=== PATIENT | male | born 1925 | race Caucasian/White ===

== ENCOUNTER 2017-02-28 16:38 | Inpatient (IN) | payer MEDICARE, MEDICAID ==
[~2017-02-28] VITALS: Ht 172.7 cm; Wt 68.9 kg
[2017-02-28] MEDS ORDERED: SIMV10TA6 PO (17:00)
[2017-02-28] MEDS ORDERED: ASPI81TA31 PO (17:00)
[2017-02-28] MEDS ORDERED: POLY17PO4 PO (17:00)
[2017-02-28] MEDS ORDERED: NAPR500T3 PO (17:00)
[2017-02-28] MEDS ORDERED: DONE5TAB7 PO (17:00)
[2017-02-28] MEDS ORDERED: NIAC500T2 PO (17:00)
[2017-02-28] MEDS ORDERED: MEMA10TA PO (17:00)
[2017-02-28] MEDS ORDERED: VIT1CAPS6 PO (17:00)
[2017-02-28] MEDS ORDERED: FLUO10CA26 PO (17:00)
[2017-02-28] MEDS ORDERED: ACET-2605 PO (17:00)
[2017-02-28] MEDS ORDERED: TRAM50TA2 PO (17:01)
[2017-02-28 17:32] LABS: BASOPHILS % (AUTO) 0.4 % (0.0-2.0); EOSINOPHILS # (AUTO) 0.2 K/uL (0.0-0.7); EOSINOPHILS % (AUTO) 3.7 % (0.0-7.0); LYMPHOCYTES # (AUTO) 0.6 K/UL (0.8-4.8); LYMPHOCYTES % (AUTO) 12.2 % (20.5-51.5); MEAN CORPUSCULAR HEMOGLOBIN 20.5 UUG (27.0-31.0); MEAN CORPUSCULAR HGB CONC 29 g/dL (32.0-37.0); MEAN CORPUSCULAR VOLUME 69.7 FL (82.0-92.0); MONOCYTES # (AUTO) 0.4 K/UL (0.1-1.30); MONOCYTES % (AUTO) 7.9 % (0.0-11.0); NEUTROPHILS # (AUTO) 3.4 K/UL (1.8-8.9); NEUTROPHILS % (AUTO) 75.8 % (38.5-71.5); PLATELET COUNT (AUTO) 280 K/UL (150-450); RED BLOOD CELL COUNT(AUTO) 2.61 MIL/UL (4.7-6.1); WHITE BLOOD COUNT (AUTO) 4.6 K/UL (4.0-11.2)
[2017-02-28 17:33] LABS: CARBON DIOXIDE 28 mmol/L (21-32); CHLORIDE 103 mmol/L (98-107); CREATININE 0.9 mg/dL (0.6-1.3); GLUCOSE 128 mg/dL (74-106); POTASSIUM 4.5 mmol/L (3.5-5.1); UREA NITROGEN, BLOOD 23 mg/dL (7-18)
[2017-02-28 17:44] LABS: HEMATOCRIT 18.2 % (40-50); HEMOGLOBIN 5.4 G/DL (14.0-18.0)
[2017-02-28 17:45] LABS: ALANINE AMINOTRANSFERASE 9 U/L (16-63); ALKALINE PHOSPHATASE 812 U/L (50-136); ASPARTATE AMINOTRANSFERASE 71 U/L (15-37); BILIRUBIN,DIRECT 0.1 mg/dL (0.0-0.2); BILIRUBIN,TOTAL 0.3 mg/dL (0.2-1.0)
[2017-02-28 17:59] LABS: *BILIRUBIN,URIN NEGATIVE (NEGATIVE); *BLOOD, URINE NEGATIVE (NEGATIVE); *CLARITY,URINE CLEAR (CLEAR); *COLOR,URINE YELLOW (YELLOW); *KETONES,URINE NEGATIVE (NEGATIVE); *PROTEIN,URINE 1+ (NEGATIVE); LEUKOCYTE ESTERASE ,URINE NEGATIVE (NEGATIVE); NITRITE, URINE NEGATIVE (NEGATIVE); UGLUCOSE NEGATIVE (NEGATIVE)
[2017-02-28 18:29] LABS: BACTERIA,URINE FEW /HPF (NONE SEEN); RBC,URINE 0-3 /HPF (0-3); SQUAMOUS EPITHELIAL CELL,UR FEW /HPF (NONE SEEN); WBC,URINE 0-3 /HPF (0-3)
[2017-02-28 18:39] LABS: BAND % (MANUAL) 6 % (0-10); EOSINOPHILS % (MANUAL) 3 % (0-8); LYMPHOCYTES % (MANUAL) 9 % (20-40); METAMYELOCYTES % 1 % (0-1); MONOCYTES % (MANUAL) 6 % (2-10); NEUTROPHILS % (MANUAL) 75 % (42-75)
--- NOTE | 2017-02-28 18:52 | NUR ---
PT IS IN ROOM #2B. DR LAWLER EVALUATED THE PT. PT'S DOUGHTER AT THE BEDSIDE. PT IS RESTING IN THE BED COMFORTABLY.
[2017-02-28] MEDS ORDERED: MORPHINE SULFATE 4 MG/1 ML DISP.SYRIN IV ONE (19:30)
[2017-02-28] MEDS ORDERED: ONDANSETRON IV *ER 4 MG/2 ML VIAL IV ONE (19:30)
[2017-02-28] MEDS ORDERED: MORPHINE SULFATE 4 MG/1 ML DISP.SYRIN ONE (19:53)
[2017-02-28] MEDS ORDERED: ONDANSETRON 4 MG/2 ML VIAL ONE (19:54)
--- NOTE | 2017-02-28 19:58 | NUR ---
Second IV established, pt medicated for discomfort, will monitor for effects of medication. Blood transfusion started. Will monitor for any adverse reactions. Pt resting in position of comfort for self. Preparing to transfer pt to the floor
--- NOTE | 2017-02-28 21:00 | NUR ---
Report called to floor. Blood transfusion cont, no adverse reactions noted. Preparing to transfer pt to the floor.
--- NOTE | 2017-02-28 21:00 | NUR ---
PT RECEIVED FROM ED VIA GURNEY. DAUGHTER AT BEDSIDE. A/OX2. ORIENTED TO ROOM. V/S STABLE. NO ACUTE DISTRESS NOTED. NO COMPLAINTS OF PAIN AT THIS TIME. IV BLOOD TRANSFUSION ENDED. 108 [place] [place] WITH PAC'S ON THE TELE MONITOR. FALL PRECAUTIONS IN PLACE. SAFETY MEASURE IMPLEMENTED. CALL LIGHT WITHIN REACH. WILL CONT TO MONITOR.
[2017-02-28 21:20] VITALS: BP 103/58
[2017-02-28 22:35] VITALS: BP 103/57
[2017-02-28 22:51] VITALS: BP 103/55
[2017-02-28] MEDS ORDERED: TEMAZEPAM 15 MG CAPSULE PO PRN (23:00)
[2017-02-28] MEDS ORDERED: ACETAMINOPHEN ES 500 MG TABLET PO PRN (23:00)
[2017-02-28 23:05] VITALS: BP 107/60
[2017-02-28] MEDS ORDERED: ACETAMINOPHEN ES 500 MG TABLET ONE (23:05)
[2017-02-28] MEDS ORDERED: TEMAZEPAM 15 MG CAPSULE ONE (23:05)
[2017-02-28 23:56] VITALS: BP 103/57
[2017-03-01 00:05] VITALS: BP_SYST 108; BP_SYST 113; BP_DIAS 63
[2017-03-01 01:01] VITALS: BP_SYST 95; BP_SYST 96; BP_DIAS 49; BP_DIAS 57
--- NOTE | 2017-03-01 01:05 | NUR ---
1 UNIT OF PRBC ADMINISTERED ORDERED. PT IN STABLE CONDITION. WILL CONT TO MONITOR.
[2017-03-01 04:00] VITALS: BP 103/60
--- NOTE | 2017-03-01 05:46 | NUR ---
END OF SHIFT NOTES. PT SLEPT INTERMITTENTLY THROUGHOUT SHIFT. NEEDS ATTENDED. V/S STABLE. NO ACUTE DISTRESS NOTED. NO COMPLAINTS OF PAIN THROUGHOUT SHIFT. PT IV TKO. SAFETY MAINTAINED. BED ALARM SET. CALL LIGHT WITHIN REACH.
[2017-03-01 06:51] LABS: CARBON DIOXIDE 27 mmol/L (21-32); CHLORIDE 104 mmol/L (98-107); CREATININE 0.9 mg/dL (0.6-1.3); GLUCOSE 93 mg/dL (74-106); POTASSIUM 4.4 mmol/L (3.5-5.1); UREA NITROGEN, BLOOD 21 mg/dL (7-18)
[2017-03-01 06:53] LABS: BASOPHILS % (AUTO) 0.6 % (0.0-2.0); EOSINOPHILS # (AUTO) 0.3 K/uL (0.0-0.7); EOSINOPHILS % (AUTO) 5.2 % (0.0-7.0); HEMOGLOBIN 7.3 G/DL (14.0-18.0); LYMPHOCYTES # (AUTO) 0.8 K/UL (0.8-4.8); LYMPHOCYTES % (AUTO) 12.4 % (20.5-51.5); MEAN CORPUSCULAR HEMOGLOBIN 23.2 UUG (27.0-31.0); MEAN CORPUSCULAR HGB CONC 31 g/dL (32.0-37.0); MEAN CORPUSCULAR VOLUME 74.5 FL (82.0-92.0); MONOCYTES # (AUTO) 0.5 K/UL (0.1-1.30); MONOCYTES % (AUTO) 8.4 % (0.0-11.0); NEUTROPHILS # (AUTO) 4.9 K/UL (1.8-8.9); NEUTROPHILS % (AUTO) 73.4 % (38.5-71.5); PLATELET COUNT (AUTO) 270 K/UL (150-450); RED BLOOD CELL COUNT(AUTO) 3.16 MIL/UL (4.7-6.1); WHITE BLOOD COUNT (AUTO) 6.5 K/UL (4.0-11.2)
[2017-03-01 07:03] LABS: HEMATOCRIT 23.5 % (40-50)
--- NOTE | 2017-03-01 07:30 | NUR ---
DR LR WAS INFORM OF HB/HCT LAB RESULT TODAY NO NEW ORDER
[2017-03-01 07:59] LABS: EOSINOPHILS % (MANUAL) 5 % (0-8); LYMPHOCYTES % (MANUAL) 13 % (20-40); MONOCYTES % (MANUAL) 6 % (2-10); NEUTROPHILS % (MANUAL) 76 % (42-75)
--- NOTE | 2017-03-01 08:00 | NUR ---
RESTING IN BED NO SOB OR PAIN ON ASPIRATION /FA,LL PRECAUTION CALL RAINEY IN REACH AND BED ALARM ON
--- NOTE | 2017-03-01 10:00 | NUR ---
ASSIST UP IN CHAIR EAT BREAKFAST WELL PO FLD JAYNE MOD AMT
[2017-03-01] MEDS ORDERED: NAPROXEN 500 MG TABLET PO PRN (10:30)
[2017-03-01] MEDS ORDERED: MIRALAX 17 GM POWD.PACK PO PRN (10:30)
[2017-03-01] MEDS: MEMANTINE HCL 10 MG TABLET PO SCH ×2 (10:35→17:20)
[2017-03-01] MEDS: BETA CAROTENE/VIT C & E/MIN TABLET PO SCH ×2 (10:35→17:20)
[2017-03-01] MEDS: DONEPEZIL 5 MG TABLET PO SCH (10:35)
[2017-03-01] MEDS: FLUOXETINE HCL 10 MG CAPSULE PO SCH (10:35)
[2017-03-01] MEDS: ASPIRIN 81 MG TAB.CHEW PO SCH (10:35)
[2017-03-01] MEDS: TRAMADOL HCL 50 MG TABLET PO PRN ×2 (10:35→20:14)
[2017-03-01 12:00] VITALS: BP 99/49
[2017-03-01] MEDS ORDERED: ACETAMINOPHEN ES 500 MG TABLET PO SCH (13:00)
[2017-03-01 14:28] LABS: *OCCULT BLOOD STOOL POSITIVE (NEGATIVE)
[2017-03-01 16:00] VITALS: BP 106/58
--- NOTE | 2017-03-01 16:00 | NUR ---
MOST OF THE TIME HE RESTING WELL FAMILY DAUGHTER AT BEDSIDE
--- NOTE | 2017-03-01 18:00 | NUR ---
STABLE HEMODYNAMIC SAFETY MEASURE PROVIDED BED ALARM ON AND SITTER 1:1 AT BEDSIDE CALL LIGHT WITHIN REACH
[2017-03-01 19:00] VITALS: BP 98/50
[2017-03-01] MEDS: NIACIN 500 MG TABLET PO SCH (20:13)
[2017-03-01] MEDS: SIMVASTATIN 10 MG TABLET PO SCH (20:14)
--- NOTE | 2017-03-01 20:15 | NUR ---
patient had moderate amount of soft stool, no active bleeding noted,SR with PAC's on monitor,Ultram 50 mg po admin for generalized and low back pain,patient seen by . for psych consult.
[2017-03-02] VITALS: BP 99/58
--- NOTE | 2017-03-02 01:29 | NUR ---
patient has been sleeping ,bed alarm on,1:1 sitter at bedside for safety.
[2017-03-02 04:00] VITALS: BP 100/57
[2017-03-02 07:24] LABS: BASOPHILS % (AUTO) 0.1 % (0.0-2.0); EOSINOPHILS # (AUTO) 0.4 K/uL (0.0-0.7); EOSINOPHILS % (AUTO) 5.4 % (0.0-7.0); LYMPHOCYTES # (AUTO) 0.8 K/UL (0.8-4.8); LYMPHOCYTES % (AUTO) 12.5 % (20.5-51.5); MEAN CORPUSCULAR HEMOGLOBIN 23.9 UUG (27.0-31.0); MEAN CORPUSCULAR HGB CONC 32 g/dL (32.0-37.0); MEAN CORPUSCULAR VOLUME 75.7 FL (82.0-92.0); MONOCYTES # (AUTO) 0.6 K/UL (0.1-1.30); MONOCYTES % (AUTO) 8.3 % (0.0-11.0); NEUTROPHILS # (AUTO) 4.9 K/UL (1.8-8.9); NEUTROPHILS % (AUTO) 73.7 % (38.5-71.5); PLATELET COUNT (AUTO) 268 K/UL (150-450); RED BLOOD CELL COUNT(AUTO) 3.05 MIL/UL (4.7-6.1); WHITE BLOOD COUNT (AUTO) 6.7 K/UL (4.0-11.2)
[2017-03-02 07:37] LABS: HEMOGLOBIN 7.3 G/DL (14.0-18.0)
[2017-03-02 07:38] LABS: HEMATOCRIT 23.1 % (40-50)
[2017-03-02 07:52] LABS: CARBON DIOXIDE 26 mmol/L (21-32); CHLORIDE 104 mmol/L (98-107); CREATININE 1.1 mg/dL (0.6-1.3); GLUCOSE 86 mg/dL (74-106); POTASSIUM 4.2 mmol/L (3.5-5.1); UREA NITROGEN, BLOOD 24 mg/dL (7-18)
[2017-03-02] MEDS: DONEPEZIL 5 MG TABLET PO SCH (08:00)
[2017-03-02] MEDS: BETA CAROTENE/VIT C & E/MIN TABLET PO SCH ×2 (08:00→17:13)
[2017-03-02] MEDS: ASPIRIN 81 MG TAB.CHEW PO SCH (08:00)
[2017-03-02] MEDS: FLUOXETINE HCL 10 MG CAPSULE PO SCH (08:00)
[2017-03-02] MEDS: MEMANTINE HCL 10 MG TABLET PO SCH ×2 (08:00→17:13)
[2017-03-02 08:19] VITALS: BP 94/46
--- NOTE | 2017-03-02 08:30 | NUR ---
AWAKE COOPERATE WELL NO SOB OR PAIN ON FALL AND ASPIRATION PRECAUTION CALL RAINEY IN REACH SITTER 1:1 AT BEDSIDE AND BED ALARM ON
[2017-03-02 11:25] VITALS: BP 99/59
--- NOTE | 2017-03-02 13:00 | NUR ---
DR LR SEE PATIENT AND LAB RESULT AND DISCUSS WITH FAMILY DAUGHTER THIS AFTERNOON
[2017-03-02 15:18] VITALS: BP 106/54
--- NOTE | 2017-03-02 16:00 | NUR ---
DR JEFFRIES HERE SEE PATIENT AND NEW ORDER SCHEDULE FOR EGD AND COLONOSCOPY TOMORROW
[2017-03-02] MEDS ORDERED: GOLYTELY 4000 ML BOTTLE PO ONE (16:45)
--- NOTE | 2017-03-02 17:30 | NUR ---
SAME CONDITION ,PAIN UNDER CONTROL NO BLEEDING NO ACUTE DISTRESS SAFETY MEASURE PROVIDED CALL RAINEY IN REACH AND BED ALARM ON START GOLYTELY THIS EVENING JAYNE WELL SCHEDULE EGD AND COLONOSCOPY IN AM
[2017-03-02 19:00] VITALS: BP 104/60
--- NOTE | 2017-03-02 19:45 | NUR ---
PT RECEIVED LAYING IN BED, NO ACUTE DISTRESS NOTED. PT IS AOX2/3, SOMEWHAT IRRITABLE UPON APPROACH. HEP LOCK NOTED TO RIGHT ARM AND RIGHT HAND, BOTH INTACT AND PATENT. PT CURRENTLY DRINKING GO LIGHTLY DRINK FOR SCHEDULED COLONOSCOPY IN AM. 1:1 SITTER AT BEDSIDE.
[2017-03-02] MEDS: NIACIN 500 MG TABLET PO SCH (20:25)
[2017-03-02] MEDS: SIMVASTATIN 10 MG TABLET PO SCH (20:26)
--- NOTE | 2017-03-02 23:00 | NUR ---
PT AWAKE INTERMITTENTLY TONIGHT. PT DRINKS GO LIGHTLY BUT REFUSES AFTER 1 CUP GIVEN DESPITE EDUCATION. WILL CONTINUE TO ENCOURAGE PT TO DRINK GO LIGHTLY. NO ACUTE DISTRESS NOTED. SAFETY MEASURES MAINTAINED.
--- NOTE | 2017-03-03 02:28 | NUR ---
PT AWAKE USING RESTROOM, PT SOMEWHAT AGITATED, REFUSING TO DRINKING GO LIGHTLY DRINK DESPITE EDUCATION, STATES "LET ME SLEEP WILL YOU". WILL CONTINUE TO ENCOURAGEMENT TO DRINK. 1:1 SITTER AT BEDSIDE.
[2017-03-03 04:00] VITALS: BP 115/69
--- NOTE | 2017-03-03 06:35 | NUR ---
PT HAD X5 BOWEL MOVEMENT THROUGH OUT THE NIGHT, PER SITTER LAST BM IS LOOSE STOOL BUT STILL SOMEWHAT BROWN AND NOT YET CLEAR. PT REFUSED TO DRINK THE REST OF GO LIGHTLY DESPITE EDUCATION, WILL ENDORSE TO STAFF AND MD. SAFETY MEASURES MAINTAINED.
--- NOTE | 2017-03-03 07:10 | NUR ---
LEFT MESSAGE WITH DR JEFFRIES OFFICE VOICEMAIL REGARDING PT REFUSING TO COMPLETE INTAKE OF GO LIGHTLY. AWAITING CALL BACK. REPORT GIVEN TO ROHIT.
[2017-03-03 07:19] LABS: EOSINOPHILS # (AUTO) 0.3 K/uL (0.0-0.7); EOSINOPHILS % (AUTO) 3.6 % (0.0-7.0); LYMPHOCYTES # (AUTO) 0.9 K/UL (0.8-4.8); LYMPHOCYTES % (AUTO) 12.3 % (20.5-51.5); MEAN CORPUSCULAR HEMOGLOBIN 23.9 UUG (27.0-31.0); MEAN CORPUSCULAR HGB CONC 32 g/dL (32.0-37.0); MEAN CORPUSCULAR VOLUME 74.8 FL (82.0-92.0); MONOCYTES # (AUTO) 0.5 K/UL (0.1-1.30); MONOCYTES % (AUTO) 6.7 % (0.0-11.0); NEUTROPHILS # (AUTO) 5.9 K/UL (1.8-8.9); NEUTROPHILS % (AUTO) 77.4 % (38.5-71.5); PLATELET COUNT (AUTO) 271 K/UL (150-450); WHITE BLOOD COUNT (AUTO) 7.6 K/UL (4.0-11.2)
[2017-03-03 07:29] LABS: HEMATOCRIT 22.6 % (40-50); HEMOGLOBIN 7.2 G/DL (14.0-18.0)
[2017-03-03 07:30] LABS: RED BLOOD CELL COUNT(AUTO) 3.03 MIL/UL (4.7-6.1)
[2017-03-03] MEDS ORDERED: FLEET ENEMA 133 ML BOTTLE RC ONE (07:30)
[2017-03-03] MEDS ORDERED: MAGNESIUM CITRATE 296 ML BOTTLE PO ONE (07:30)
[2017-03-03] MEDS ORDERED: IRR STERIL WATER FOR IRR 1000 ML BOTTLE IR ONE (07:33)
[2017-03-03] MEDS ORDERED: PROPOFOL 200 MG/20 ML BOTTLE IV ONE (07:33)
[2017-03-03] MEDS ORDERED: IV NORMAL SALINE 1000 ML BAG IV ONE (07:33)
--- NOTE | 2017-03-03 07:50 | NUR ---
MAG CITRATE GIVEN ORDER JAYNE WELL NO N/V OTHERWISE HE WAS NPO EXCEPT MEDICINE NO SOB OR PAIN RESTING WELL WITH CALL LIGHT IN REACH ,BED ALARM ON SITTER 1:1 FOR SAFETY
[2017-03-03] MEDS: DONEPEZIL 5 MG TABLET PO SCH (07:51)
[2017-03-03] MEDS: FLUOXETINE HCL 10 MG CAPSULE PO SCH (07:51)
[2017-03-03] MEDS: MEMANTINE HCL 10 MG TABLET PO SCH ×2 (07:51→16:53)
[2017-03-03 08:01] LABS: ALANINE AMINOTRANSFERASE 11 U/L (16-63); ALKALINE PHOSPHATASE 665 U/L (50-136); ASPARTATE AMINOTRANSFERASE 41 U/L (15-37); BILIRUBIN,TOTAL 0.5 mg/dL (0.2-1.0); CARBON DIOXIDE 25 mmol/L (21-32); CHLORIDE 103 mmol/L (98-107); GLUCOSE 104 mg/dL (74-106); MAGNESIUM 2.2 mg/dL (1.8-2.4); PHOSPHOROUS 3.3 mg/dL (2.5-4.9); POTASSIUM 3.9 mmol/L (3.5-5.1); TOTAL PROTEIN, SERUM 6.5 g/dL (6.4-8.2); UREA NITROGEN, BLOOD 19 mg/dL (7-18)
--- NOTE | 2017-03-03 08:10 | NUR ---
FLEET ENEMA X1 GIVEN TODAY JAYNE PROCEDURE WELL
[2017-03-03 08:45] LABS: BASOPHILS % (MANUAL) 1 % (0-2); EOSINOPHILS % (MANUAL) 8 % (0-8); LYMPHOCYTES % (MANUAL) 14 % (20-40); METAMYELOCYTES % 1 % (0-1); MONOCYTES % (MANUAL) 5 % (2-10); MYELOCYTES % 2 % (0-0); NEUTROPHILS % (MANUAL) 69 % (42-75)
[2017-03-03] MEDS: ASPIRIN 81 MG TAB.CHEW PO SCH (09:00)
[2017-03-03] MEDS: BETA CAROTENE/VIT C & E/MIN TABLET PO SCH ×2 (09:00→16:53)
--- NOTE | 2017-03-03 09:30 | NUR ---
PATIENT HAVING BM X2 LIQ LOOSE BM WITH SMALL PARTICLE YELLOW SCHEDULE FOR EGD AND COLONOSCOPY TODAY CONSENT SIGNS BY PT DAUGHTER
--- NOTE | 2017-03-03 10:00 | NUR ---
PATIENT PULL IV HL OUT RESTART A NEW ONE ON LEFT HAND #22
[2017-03-03 11:19] VITALS: BP 111/64
--- NOTE | 2017-03-03 12:30 | NUR ---
TO GI LAB VIA BED CONDITION STABLE NO PAIN FAMILY AT BEDSIDE
--- NOTE | 2017-03-03 14:00 | NUR ---
BACK TO ROOM VS TAKEN STABLE NO PAIN OR GI BLEEDING CALL RAINEY IN REACH AND CLOSED OBSERVATION
--- NOTE | 2017-03-03 14:45 | NUR ---
DR LR SEEN PATIENT AND DISCUSS WITH DAUGHTER IN ROOM
[2017-03-03 14:59] VITALS: BP 116/63
--- NOTE | 2017-03-03 17:30 | NUR ---
STABLE CONDITION NO ACUTE DISTRESS NO BLEEDING OR SOB PAIN UNDER CONTROL SAFETY MEASURE PROVIDED BED ALARM ON AND SITTER 1:1 AT BEDSIDE
[2017-03-03 20:00] VITALS: BP 105/58
--- NOTE | 2017-03-03 20:00 | NUR ---
PT RECEIVED SITTING UP IN ANUPAM CHAIR IN ROOM, AOX2. SOMEWHAT CONFUSED AT TIMES. HEP LOCK IN LEFT HAND, INTACT AND PATENT. NO ACUTE DISTRESS NOTED. BED IN LOW AND LOCKED POSITION, 1:1 SITTER AT BEDSIDE.
[2017-03-03] MEDS: SIMVASTATIN 10 MG TABLET PO SCH (20:14)
[2017-03-03] MEDS: NIACIN 500 MG TABLET PO SCH (20:14)
[2017-03-04] VITALS (12 sets, daily range): BP systolic 101–117; BP diastolic 53–67
--- NOTE | 2017-03-04 00:05 | NUR ---
BLOOD TRANSFUSION COMPLETE. NO REACTION NOTED. VSS. BED ALARM ON. ALL NEEDS ATTENDED. WILL CONTINUE TO MONITOR.
[2017-03-04 07:15] LABS: ALANINE AMINOTRANSFERASE 11 U/L (16-63); ALKALINE PHOSPHATASE 617 U/L (50-136); ASPARTATE AMINOTRANSFERASE 45 U/L (15-37); BILIRUBIN,TOTAL 0.5 mg/dL (0.2-1.0); CARBON DIOXIDE 24 mmol/L (21-32); CHLORIDE 103 mmol/L (98-107); CREATININE 0.8 mg/dL (0.6-1.3); GLUCOSE 97 mg/dL (74-106); MAGNESIUM 2.3 mg/dL (1.8-2.4); PHOSPHOROUS 3.3 mg/dL (2.5-4.9); POTASSIUM 3.8 mmol/L (3.5-5.1); TOTAL PROTEIN, SERUM 6.1 g/dL (6.4-8.2); UREA NITROGEN, BLOOD 15 mg/dL (7-18)
[2017-03-04 07:31] LABS: EOSINOPHILS # (AUTO) 0.1 K/uL (0.0-0.7); EOSINOPHILS % (AUTO) 1.9 % (0.0-7.0); LYMPHOCYTES # (AUTO) 0.6 K/UL (0.8-4.8); LYMPHOCYTES % (AUTO) 11.9 % (20.5-51.5); MEAN CORPUSCULAR HEMOGLOBIN 23.5 UUG (27.0-31.0); MEAN CORPUSCULAR HGB CONC 31 g/dL (32.0-37.0); MEAN CORPUSCULAR VOLUME 74.9 FL (82.0-92.0); MONOCYTES # (AUTO) 0.3 K/UL (0.1-1.30); MONOCYTES % (AUTO) 7.4 % (0.0-11.0); NEUTROPHILS # (AUTO) 3.6 K/UL (1.8-8.9); NEUTROPHILS % (AUTO) 78.8 % (38.5-71.5); PLATELET COUNT (AUTO) 209 K/UL (150-450); RED BLOOD CELL COUNT(AUTO) 2.86 MIL/UL (4.7-6.1)
[2017-03-04 07:43] LABS: WHITE BLOOD COUNT (AUTO) 4.6 K/UL (4.0-11.2)
[2017-03-04 07:44] LABS: HEMOGLOBIN 6.7 G/DL (14.0-18.0)
[2017-03-04 07:45] LABS: HEMATOCRIT 21.4 % (40-50)
[2017-03-04 08:49] LABS: BAND % (MANUAL) 3 % (0-10); BASOPHILS % (MANUAL) 1 % (0-2); EOSINOPHILS % (MANUAL) 4 % (0-8); LYMPHOCYTES % (MANUAL) 12 % (20-40); METAMYELOCYTES % 1 % (0-1); MONOCYTES % (MANUAL) 7 % (2-10); NEUTROPHILS % (MANUAL) 72 % (42-75)
[2017-03-04] MEDS: MEMANTINE HCL 10 MG TABLET PO SCH ×2 (09:37→18:48)
[2017-03-04] MEDS: FLUOXETINE HCL 10 MG CAPSULE PO SCH (09:37)
[2017-03-04] MEDS: ASPIRIN 81 MG TAB.CHEW PO SCH (09:37)
[2017-03-04] MEDS: DONEPEZIL 5 MG TABLET PO SCH (09:37)
[2017-03-04] MEDS: BETA CAROTENE/VIT C & E/MIN TABLET PO SCH ×2 (09:37→18:48)
--- NOTE | 2017-03-04 19:05 | NUR ---
One unit PRBCs transfused. One unit left to transfuse. Patient Hgb 6.2. Patient could potentially be discharged tomorrow depending on lab work.
--- NOTE | 2017-03-04 20:00 | NUR ---
RECEIVED PATIENT ASLEEP IN BED. EASILY AROUSABLE. ALERT TO SELF. CONFUSED AND FORGETFUL AT TIMES. NEEDS REDIRECTION. VSS. DENIES PAIN WHEN ASKED. NO RESP. DISTRESS NOTED. H/L INTACT AND PATENT. SITTER AT BEDSIDE FOR SAFETY. BED ALARM ON. CALL LIGHT IN REACH. WILL CONTINUE TO MONITOR.
--- NOTE | 2017-03-04 20:15 | NUR ---
PATIENT HAS AN OLD SKIN TEAR NOTED TO LEFT ELBOW WITH STERI-STRIPS IN PLACE. WILL CONTINUE TO MONITOR.
--- NOTE | 2017-03-04 20:45 | NUR ---
2ND UNIT OF BLOOD STARTED ORDERED. VSS. WILL CONTINUE TO MONITOR.
--- NOTE | 2017-03-04 21:00 | NUR ---
NO TRANSFUSION REACTION NOTED. VSS. WILL CONTINUE TO MONITOR.
[2017-03-04] MEDS: NIACIN 500 MG TABLET PO SCH (21:15)
[2017-03-04] MEDS: SIMVASTATIN 10 MG TABLET PO SCH (21:16)
[2017-03-05 00:04] VITALS: BP 106/62
[2017-03-05 05:19] VITALS: BP 125/68
[2017-03-05 06:52] LABS: BASOPHILS % (AUTO) 0.5 % (0.0-2.0); EOSINOPHILS # (AUTO) 0.2 K/uL (0.0-0.7); EOSINOPHILS % (AUTO) 3.8 % (0.0-7.0); HEMATOCRIT 26.4 % (40-50); HEMOGLOBIN 8.6 G/DL (14.0-18.0); LYMPHOCYTES # (AUTO) 0.9 K/UL (0.8-4.8); LYMPHOCYTES % (AUTO) 15.7 % (20.5-51.5); MEAN CORPUSCULAR HEMOGLOBIN 25.2 UUG (27.0-31.0); MEAN CORPUSCULAR HGB CONC 33 g/dL (32.0-37.0); MEAN CORPUSCULAR VOLUME 76.9 FL (82.0-92.0); MONOCYTES # (AUTO) 0.6 K/UL (0.1-1.30); MONOCYTES % (AUTO) 10.2 % (0.0-11.0); NEUTROPHILS % (AUTO) 69.8 % (38.5-71.5); PLATELET COUNT (AUTO) 198 K/UL (150-450); RED BLOOD CELL COUNT(AUTO) 3.43 MIL/UL (4.7-6.1); WHITE BLOOD COUNT (AUTO) 5.7 K/UL (4.0-11.2)
--- NOTE | 2017-03-05 07:15 | NUR ---
rec'd bedside sbar report. pt resting/eyes closed, no distress noted.
[2017-03-05 07:25] LABS: ALANINE AMINOTRANSFERASE 13 U/L (16-63); ALKALINE PHOSPHATASE 604 U/L (50-136); ASPARTATE AMINOTRANSFERASE 40 U/L (15-37); BILIRUBIN,TOTAL 0.7 mg/dL (0.2-1.0); CARBON DIOXIDE 25 mmol/L (21-32); CHLORIDE 106 mmol/L (98-107); GLUCOSE 98 mg/dL (74-106); MAGNESIUM 2.3 mg/dL (1.8-2.4); PHOSPHOROUS 3.2 mg/dL (2.5-4.9); POTASSIUM 3.7 mmol/L (3.5-5.1); UREA NITROGEN, BLOOD 14 mg/dL (7-18)
[2017-03-05 08:15] VITALS: BP 119/62
[2017-03-05] MEDS: BETA CAROTENE/VIT C & E/MIN TABLET PO SCH (09:23)
[2017-03-05] MEDS: MEMANTINE HCL 10 MG TABLET PO SCH (09:24)
[2017-03-05] MEDS: ASPIRIN 81 MG TAB.CHEW PO SCH (09:24)
[2017-03-05] MEDS: FLUOXETINE HCL 10 MG CAPSULE PO SCH (09:24)
[2017-03-05] MEDS: DONEPEZIL 5 MG TABLET PO SCH (09:24)
[2017-03-05] MEDS: TRAMADOL HCL 50 MG TABLET PO PRN (09:24)
[2017-03-05] MEDS ORDERED: TEMA15CA5 PO (13:21)
[2017-03-05 15:01] VITALS: BP 108/59
--- NOTE | 2017-03-05 15:26 | NUR ---
CALLED [facility] AT [phone], SPOKE TO IMAN BEE AND GAVE SBAR REPORT. AT THIS POINT AWAITING FOR [facility] TRANSFER. IDL=[id number]
--- NOTE | 2017-03-05 17:15 | NUR ---
[facility] arrived, sbar report to emt's, copy of chart. completed belongings list and discharge. iv was d/c'd intact. pt took all belongings. pt's daughter was present.
== END 2017-03-05 17:20 | DRG 377 ==
LOC: ER 16:42 → TELE 20:47 → MED 03-02 17:05
PROVIDERS: ADMIT Internal Medicine; ATTEND Internal Medicine
PROC: 30233N1 Transfusion of Nonautologous Red Blood Cells into Peripheral Vein, Percutaneous Approach (ICD-10-PCS; principal; 2017-02-28)
PROC: 0DB68ZX Excision of Stomach, Via Natural or Artificial Opening Endoscopic, Diagnostic (ICD-10-PCS; 2017-03-03)
PROC: 0DJD8ZZ Inspection of Lower Intestinal Tract, Via Natural or Artificial Opening Endoscopic (ICD-10-PCS; 2017-03-03)
PROC: 0DJ08ZZ Inspection of Upper Intestinal Tract, Via Natural or Artificial Opening Endoscopic (ICD-10-PCS; 2017-03-03 12:40)
DX: K25.0 Acute gastric ulcer with hemorrhage (principal); G92 Toxic encephalopathy; C79.51 Secondary malignant neoplasm of bone; D50.9 Iron deficiency anemia, unspecified; E78.5 Hyperlipidemia, unspecified; F03.90 Unspecified dementia, unspecified severity, without behavioral disturbance, psychotic disturbance, mood disturbance, and anxiety; I50.9 Heart failure, unspecified; I70.0 Atherosclerosis of aorta; K29.70 Gastritis, unspecified, without bleeding; K59.00 Constipation, unspecified; K64.8 Other hemorrhoids; M19.90 Unspecified osteoarthritis, unspecified site; N40.0 Benign prostatic hyperplasia without lower urinary tract symptoms; K57.90 Diverticulosis of intestine, part unspecified, without perforation or abscess without bleeding; K44.9 Diaphragmatic hernia without obstruction or gangrene; N30.90 Cystitis, unspecified without hematuria; F32.9 Major depressive disorder, single episode, unspecified; M54.5 Low back pain; Z86.718 Personal history of other venous thrombosis and embolism; Z88.1 Allergy status to other antibiotic agents; Z79.82 Long term (current) use of aspirin; Z79.899 Other long term (current) drug therapy; T39.395A Adverse effect of other nonsteroidal anti-inflammatory drugs [NSAID], initial encounter; Y92.009 Unspecified place in unspecified non-institutional (private) residence as the place of occurrence of the external cause; D50.0 Iron deficiency anemia secondary to blood loss (chronic); C80.1 Malignant (primary) neoplasm, unspecified
CPT/HCPCS: 36415; 70030-TC; 71010; 76700; 83605; 83735; 84100; 85025; 85730; 86850; 86900; 86901; 86920; 87040; 87086; 93005; A4217; A4663; J2270; J2405; J3490; J7030; J7040; J7050; P9016-BL; P9021